=== PATIENT | female | born 1995 | race Caucasian/White ===

== ENCOUNTER 2018-06-01 17:11 | Emergency (ER) | payer OTHER ==
[2018-06-01] MEDS ORDERED: IV NORMAL SALINE 1,000ML 1,000 ML IV SCH (17:34)
[2018-06-01] MEDS ORDERED: ONDANSETRON PF 4 MG/2 ML VIAL. IV ONE (17:45)
[2018-06-01] MEDS ORDERED: KETOROLAC 30 MG/ML VIAL. IV ONE (17:45)
[2018-06-01] MEDS ORDERED: ACETAMINOPHEN 500 MG TABLET PO ONE (17:45)
--- NOTE | 2018-06-01 17:48 | PHYS DOC ---
Adult General Chief Complaint Chief Complaint: FEVER HPI HPI Patient is a 23-year-old female who presents with complaint of fever, body aches , chills and lower abdominal pain that started yesterday. Patient was seen over the [facility] and has been swabbed for influenza twice, both times testing negative. She denies any vomiting or diarrhea but indicates that she has been nauseated. She denies any cough, congestion or rhinorrhea. She rates the pain in her abdomen as moderate and states the pain is worsened when she ambulates. She states that nothing has been improving her symptoms. Pt. has had no travel. Significant other has not been [place] seas recently. Review of Systems Review of Systems Constitutional: Complains of fever and chills [] HENT: Denies nasal congestion or sore throat [] Respiratory: Denies cough or shortness of breath [] Cardiovascular: No additional information not addressed in HPI [] GI: Complains of lower abdominal pain with nausea. Denies vomiting or diarrhea.[ ] : Denies dysuria or hematuria [] Musculoskeletal: Denies back pain or joint pain [] Integument: Denies rash or skin lesions [] All other systems were reviewed and found to be within normal limits, except as documented in this note. Family History Family History Non-contributor Current Medications Current Medications Current Medications Medications (Trade) Dose Ordered Sig/Herbert Start Time Stop Time Status Last Admin Dose Admin Acetaminophen (Tylenol) 1,000 mg 1X ONCE 06/01/18 17:45 06/01/18 17:46 UNV Ketorolac Tromethamine (Toradol 30mg Vial) 30 mg 1X ONCE 06/01/18 17:45 06/01/18 17:46 UNV Ondansetron HCl (Zofran) 4 mg 1X ONCE 06/01/18 17:45 06/01/18 17:46 UNV Sodium Chloride 1,000 ml @ 1,000 mls/hr Q1H 06/01/18 17:34 06/01/18 18:33 UNV Allergies Allergies NKDA Physical Exam Physical Exam Constitutional: Well developed, well nourished, moderately acute distress, non- toxic appearance. [] HENT: Normocephalic, atraumatic, bilateral external ears normal, oropharynx dry , no oral exudates, nose normal. Fever blister lower lip -( present since onset GI complaints) Eyes: PERRLA, EOMI, conjunctiva normal, no discharge. [] Neck: Normal range of motion, no tenderness, supple. [] Cardiovascular: Tachycardia Heart rate is tachycardic with regular rhythm[] Lungs & Thorax: Bilateral breath sounds clear to auscultation [] Abdomen: Bowel sounds normal, soft, with moderate tenderness to palpation in the suprapubic and left lower quadrant regions. There is mild tenderness to palpation in the right lower quadrant. [] Denies vaginal discharge. Umbilicus stud. Skin: Warm, dry, no erythema, no rash. [] Extremities: No tenderness, no cyanosis, no clubbing, ROM intact, no edema. [] No psoas or heel tap. Neurologic: Alert and oriented X 3, normal motor function, normal sensory function, no focal deficits noted. Anxious EKG EKG [] Radiology/Procedures Radiology/Procedures My interpretation and film shows stool in right colon. Increase gas throughout bowel. Hardware at umbilicus. No free air. Lung portion of film no acute cardiopulmonary findings.[] Course & Med Decision Making Course & Med Decision Making Pertinent Labs and Imaging studies reviewed. (See chart for details) A workup has been initiated on this patient for fever and at this time, workup is pending. Patient is being signed out to Dr. Moore at 6:00 PM. Impression: 1. Abd. Pain 2. Dehydration 3. Viral Dif. Lymph17, [place] 17 4. Hypokalemia 5. Elevated Creat. 6. Elevated Urine Ketones 7. Viral Syndrome Dragon Disclaimer Dragon Disclaimer This electronic medical record was generated, in whole or in part, using a voice recognition dictation system. Departure Departure: Referrals: STAS LLAMAS MD (PCP) Scripts Hydrocodone/Ibuprofen (HYDROCODONE-IBUPROFEN 7.5-200 ) 1 Each Tablet 1 TAB PO PRN Q6HRS PRN for PAIN, #30 TAB 0 Refills Prov: AMRITA MOORE MD 06/01/18 Ondansetron (ZOFRAN ODT) 8 Mg Tab.rapdis 8 MG PO QIDPRN PRN for NAUSEA/VOMITING, #30 BOT Prov: AMRITA MOORE MD 06/01/18 MATT ROLON Jr. DO Jun 01, 2018 17:48 AMRITA MOORE MD Jun 01, 2018 18:59
[2018-06-01 18:18] LABS: BACTERIA,URINE FEW /HPF (0-FEW); BILIRUBIN,URINE NEG (NEG); CLARITY,URINE CLOUDY; COLOR,URINE AMBER; GLUCOSE,URINE NEG (NEG); NITRITE,URINE NEG (NEG); SQUAMOUS EPITHELIAL CELL,UR MANY /LPF; UROBILINOGEN,URINE 1 mg/dL (0.2 mg/dL)
[2018-06-01 18:30] LABS: ALBUMIN 4.4 g/dL (3.4-5.0); ALBUMIN/GLOBULIN RATIO 1.1 (1.0-1.7); CALCIUM 8.9 mg/dL (8.5-10.1); CREATININE 1.1 mg/dL (0.6-1.0); GFR 61.6; POTASSIUM 3.4 mmol/L (3.5-5.1); TOTAL BILIRUBIN 0.6 mg/dL (0.2-1.0); TOTAL PROTEIN 8.3 g/dL (6.4-8.2)
[2018-06-01] MEDS ORDERED: IV RINGERS SOLUTION,LACTATED 1,000 ML IV ONE (18:45)
[2018-06-01 18:47] LABS: BASO % 0 % (0-3); EOS % 0 % (0-3); HEMATOCRIT 37.9 % (36.0-47.0); HEMOGLOBIN 12.3 g/dL (12.0-15.5); LYMPH # 1.1 x10^3/uL (1.0-4.8); LYMPH % 17 % (24-48); MEAN CORPUSCULAR HEMOGLOBIN 28 pg (25-35); MEAN CORPUSCULAR HGB CONC 33 g/dL (31-37); MEAN CORPUSCULAR VOLUME 85 fL (79-100); MONO # 1.2 x10^3/uL (0.0-1.1); MONO % 17 % (0-9); NEUT # 4.4 x10^3uL (1.8-7.7); NEUT % 66 % (31-73); PLATELET COUNT 215 x10^3/uL (140-400); RED BLOOD COUNT 4.45 x10^6/uL (3.50-5.40); WHITE BLOOD COUNT 6.6 x10^3/uL (4.0-11.0)
[2018-06-01] MEDS ORDERED: IOHEXOL 240 MG/ML 50ML VIAL. ONE (18:57)
[2018-06-01] MEDS ORDERED: IOHEXOL 300 MG/ML 75 ML VIAL. IV ONE (19:15)
[2018-06-01] MEDS ORDERED: IV RINGERS SOLUTION,LACTATED 1,000 ML IV STA (20:04)
[2018-06-01 20:23] VITALS: BP 105/58
--- NOTE | 2018-06-01 20:58 | RAD ---
Acute abdominal series and CT abdomen and pelvis with contrast Indication: Abdomen Pain, nausea, fever, vomiting and chills for last 2 days Date of service: 06/01/2018 .Comparison: None available Procedure: PA chest and upright and supine abdomen views are obtained. Acute abdominal series findings: Chest: Cardiac size and pulmonary vessels are normal. Pneumonia, pneumothorax or pleural effusion are not present. Bones are normal Abdomen: No evidence of free air is present. Gas pattern is normal . No abnormal calcification. The bones are normal. Impression: Normal Chest . Normal abdomen without obstruction, ileus or free air . End impression CT abdomen and pelvis: TECHNIQUE: Contiguous helical acquisitions are obtained through the abdomen and pelvis during intravenous administration of 75 cc of Omnipaque 300. Sagittal and coronal reformatted images are obtained and reviewed. FINDINGS: The lung bases are essentially clear. The visualized heart is normal. The liver, spleen, pancreas and gallbladder appear normal. Both adrenal glands and bilateral kidneys are normal in size with symmetric excretion of contrast via both kidneys. The aorta is normal in caliber without aneurysm. Small and large bowel loops are nondilated and unremarkable. There is scattered stool in the colon. Appendix is normally visualized. No inflammatory changes seen in the right lower quadrant. Urinary bladder is decompressed. Uterus is anteverted. There are small bilateral ovarian cysts. No free fluid. Interrogation of bone windows demonstrates no bony abnormalities. IMPRESSION: No acute intra-abdominal or pelvic process detected. Small bilateral ovarian cysts, probably Physiological. PQRS Compliance Statement: One or more of the following individualized dose reduction techniques were utilized for this examination: 1. Automated exposure control 2. Adjustment of the mA and/or kV according to patient size 3. Use of iterative reconstruction technique Electronically signed by: Maggie Fenton MD (06/01/2018 8:55 PM) [facility]
[2018-06-01] MEDS ORDERED: HYDR-79 PO (21:18)
[2018-06-01] MEDS ORDERED: ONDA8TAB12 PO (21:18)
== END 2018-06-01 21:36 | disposition home or self-care (01) ==
LOC: ER 17:11
DX: E86.0 Dehydration (principal); B34.8 Other viral infections of unspecified site; R82.4 Acetonuria; E87.6 Hypokalemia; R10.31 Right lower quadrant pain; R10.32 Left lower quadrant pain; R79.89 Other specified abnormal findings of blood chemistry
CPT/HCPCS: 36415; 74022; 74177; 80053; 81001; 81025; 85025; 87040; 96361; 96374; 96375; 99285; J1885; J2405; J7120; Q9967; J7030